=== PATIENT | female | born 1990 | race Caucasian/White ===

== ENCOUNTER 2017-11-04 00:21 | Emergency (ER) | payer MEDICAID ==
[~2017-11-04] VITALS: Ht 162.6 cm; Wt 92.1 kg
[2017-11-04] MEDS ORDERED: ONDANSETRON 4MG ODT PO STA (01:16)
[2017-11-04 01:24] LABS: CLARITY URINE CLOUDY (CLEAR); COLOR URINE YELLOW (YELLOW); KETONES URINE NEGATIVE (NEGATIVE); LEUKOCYTE ESTERASE URINE 1+ (NEGATIVE); NITRITE URINE NEGATIVE (NEGATIVE); OCCULT BLOOD URINE 3+ (NEGATIVE); PH URINE 5.5 (4.5-8.0); PROTEIN URINE 1+ (NEGATIVE); SPECIFIC GRAVITY URINE 1.028 (1.005-1.030)
[2017-11-04] MEDS ORDERED: KETOROLAC 30MG/ML VIAL IV ONE (01:30)
[2017-11-04] MEDS ORDERED: CEFTRIAXONE 1 G PREMIX 50 ML IV ONE (02:00)
[2017-11-04 02:12] LABS: CHLORIDE 109 mEq/L (98-107); INR 0.9; PROTHROMBIN TIME 9.5 sec (9.1-11.1)
[2017-11-04 02:13] LABS: BASOPHILS % 0.4 % (0.0-2.0); EOSINOPHILS % 0.9 % (0.0-5.0); HEMATOCRIT. 34.1 % (36.0-48.0); LYMPHOCYTES % 11.4 % (20.0-50.0); MEAN CORPUSCULAR HEMOGLOBIN 24.7 pg (28.0-32.0); MEAN CORPUSCULAR VOLUME 76.9 fL (81.0-99.0); MEAN PLATELET VOLUME 9.8 fl (7.4-10.4); MONOCYTES % 5.1 % (2.0-8.0); NEUTROPHILS % 82.2 % (40.0-76.0); PLATELET 274 x1000/uL (130-400); RED BLOOD CELL COUNT 4.43 mill/uL (4.2-5.4); RED CELL DISTRIBUTION WIDTH 16.1 % (11.6-14.6)
[2017-11-04 04:09] VITALS: BP 110/63
== END 2017-11-04 04:10 | disposition home or self-care (01) ==
LOC: ER 00:21
DX: N39.0 Urinary tract infection, site not specified (principal); K80.20 Calculus of gallbladder without cholecystitis without obstruction
CPT/HCPCS: 36415; 76700; 80053; 81003; 81025; 83690; 85025; 85610; 96365; 96375; 99285; J0696; J1885; Q0162